=== PATIENT | male | born 1980 | race Caucasian/White ===

== ENCOUNTER 2018-06-28 11:26 | Day surgery (SDC) | payer OTHER ==
[2018-06-28] MEDS ORDERED: LIDOCAINE 2% (SDV) 5 ML INJ (12:51)
[2018-06-28] MEDS ORDERED: PROPOFOL 60 ML (13:03)
== END 2018-06-28 15:24 | disposition home or self-care (01) ==
LOC: GIL 11:26
DX: K29.70 Gastritis, unspecified, without bleeding (principal); K52.9 Noninfective gastroenteritis and colitis, unspecified
CPT/HCPCS: 43239; 88305; 88312